=== PATIENT | female | born 1990 | race Caucasian/White ===

== ENCOUNTER 2021-10-07 12:04 | Emergency (ER) | payer OTHER, SELFPAY ==
[2021-10-07 12:23] VITALS: BP 122/77; PULSE 95; RESP 18; TEMP 36.9; O2SAT 100
--- NOTE | 2021-10-07 12:29 | ED.EAR ---
HPI - Ear Problem General Chief complaint: Ear Stated complaint: bilateral ear pain Time Seen by Provider: 10/07/21 12:32 Source: patient Mode of arrival: ambulatory Limitations: no limitations History of Present Illness HPI Narrative: 31-year-old female presented for complaint of bilateral ear pain worse on the right than the left. Onset 1 week. Also endorses cough productive of yellow sputum. taking daily Zyrtec and Sudafed for symptoms. She has not taken anything for pain. She endorses a history of TMJ and was unable to determine if the pain was coming from that. She denies associated headache, dizziness, tinnitus, nausea, vomiting, diarrhea, fever or chills. She is not vaccinated for COVID. Complaint: ear pain Related Data Home Medications Medication Instructions Recorded Confirmed No Home Medications 10/07/21 10/07/21 Allergies Allergy/AdvReac Type Severity Reaction Status Date / Time latex Allergy Unknown Verified 10/07/21 12:39 Review of Systems Review of Systems: CONSTITUTIONAL: Denies malaise, chills, or fever. EYES: Denies visual changes, redness, or discharge. ENT: Denies rhinorrhea, congestion, sinus pain, and sore throat. Reports ear pain CARDIOVASCULAR: Denies chest pain, palpitations, or edema. RESPIRATORY: Reports cough GASTROINTESTINAL: Denies abdominal pain, nausea, vomiting, diarrhea SKIN: Denies rash or itching. MUSCULOSKELETAL: Denies myalgia. NEUROLOGIC: Denies headache. All systems reviewed & are unremarkable except as noted in HPI and below PMFSH Comments At time of signature, agree with nursing past medical, surgical, social and family history. There is no relevant family history pertinent to the presenting complaint Exam Narrative: GENERAL: Well-appearing, well-nourished, and in no acute distress. HEAD: Normocephalic EYES: PERRLA, conjunctivae clear ENT: Nares clear. Mucous membranes moist. TM pearly marie with dull light reflex bilaterally; no tragal tenderness. Oropharynx not erythematous without lesions. Tonsils not enlarged and without exudate, no drooling, no hoarseness, no trismus, uvula midline. NECK: Supple. No lymphadenopathy CHEST: Clear to auscultation, breath sounds equal. No wheezing, rhonchi, rales, or stridor. No respiratory distress, speaks in full sentences. HEART: Regular rate and rhythm. No murmur heard. SKIN: Warm, dry, no rash. NEURO: Alert and oriented x3. PSYCH: Normal mood and affect Course Course Emergency Course: Patient is aware of diagnosis, understands and agrees to treatment plan. Anticipatory guidance given. Patient agrees to follow-up as directed and is aware of reasons to seek care at the emergency department. Portions of this record may have been created with voice recognition software Level of Care: Express Care Visit Vital Signs Vital signs: Vital Signs Temperature 98.4 F 10/07/21 12:23 Pulse Rate 95 10/07/21 12:23 Respiratory Rate 18 10/07/21 12:23 Blood Pressure 122/77 10/07/21 12:23 Pulse Oximetry 100 10/07/21 12:23 Temperature 98.4 F 10/07/21 12:23 Pulse Rate 95 10/07/21 12:23 Respiratory Rate 18 10/07/21 12:23 Blood Pressure 122/77 10/07/21 12:23 Pulse Oximetry 100 10/07/21 12:23 Reviewed Medical Decision Making MDM Narrative Medical decision making narrative: Exam findings show no acute concerns or changes; patient is non-toxic appearing and is in no distress. Patient is appropriate for outpatient treatment and follow-up. Differential Diagnosis Differential Diagnosis: Differential diagnosis considered: Coronavirus, strep pharyngitis, allergic rhinitis, upper respiratory tract infection, sinusitis, rhinosinusitis, nasopharyngitis, viral pharyngitis, otitis media, otitis externa, eustachian tube dysfunction, foreign body, cerumen impaction. Vital Signs Vital Signs: Vital Signs Temperature 98.4 F 10/07/21 12:23 Pulse Rate 95 10/07/21 12:23 Respiratory Rate 18 10/07/21 12:23 Blood
== END 2021-10-07 12:45 | disposition home or self-care (01) ==
PROVIDERS: Emergency Provider Nurse Practitioner Family
DX: H92.01 Otalgia, right ear (principal)
CPT/HCPCS: 99202; G0463